=== PATIENT | female | born 1960 | race Caucasian/White ===

== ENCOUNTER 2019-07-08 11:32 | Observation (INO) ==
[2019-07-08] MEDS ORDERED: ALBUTEROL/IPRATROPIUM 3 ML NEB RESP TX PRN (15:45)
[2019-07-08] MEDS: predniSONE 20 MG TABLET PO SCH (16:41)
[2019-07-08] MEDS: LEVOTHYROXINE 100 MCG TABLET PO SCH (16:41)
[2019-07-08] MEDS ORDERED: ENOXAPARIN 40 MG/0.4 ML SYRINGE SUBCUT SCH (21:00)
[2019-07-08] MEDS ORDERED: MEROPENEM 1,000 MG in SODIUM CHLORIDE 0.9% 100 ML IV SCH (21:00)
[2019-07-08] MEDS: DOXYCYCLINE HYCLATE 100 MG CAPSULE PO SCH (21:30)
[2019-07-08] MEDS ORDERED: ONDANSETRON 4 MG/2 ML VIAL IV PRN (22:11)
[2019-07-08] MEDS: ACETAMINOPHEN 325 MG TABLET PO PRN (22:47)
[2019-07-09 06:57] LABS: Basophils % 0.4 % (0.0-0.8); Eosinophils % 0.2 % (0.00-10.9); Hematocrit 42.7 VOL% (35.7-47.0); Immature Granulocytes % 0.2 %; Immature Granulocytes Absolute 0.01 #; Lymphocytes # 1.4 10*3/uL (1.4-4.0); Mean Corpuscular HGB Conc 32.8 GM/DL (32-36); Mean Corpuscular Volume 93.2 FL (87-102); Mean Platelet Volume 10.8 FL (9.6-12.0); Monocytes % 7.2 % (1.7-12.7); Platelet Count 219 T/CUMM (130-400); Red Blood Count 4.58 MC/CUMM (3.8-5.5); White Blood Count 5.6 T/CUMM (4-12)
[2019-07-09 07:35] LABS: Osmolality,Calculated 283.1 MOS/KG (273-304)
[2019-07-09] MEDS: LEVOTHYROXINE 100 MCG TABLET PO SCH (07:39)
[2019-07-09] MEDS: predniSONE 20 MG TABLET PO SCH (08:32)
[2019-07-09] MEDS: DOXYCYCLINE HYCLATE 100 MG CAPSULE PO SCH (08:32)
[2019-07-09] MEDS ORDERED: MEROPENEM 500 MG in SODIUM CHLORIDE 0.9% 100 ML IV SCH (09:00)
[2019-07-09] MEDS ORDERED: PANTOPRAZOLE 40 MG TABLET PO SCH (09:00)
[2019-07-09] MEDS ORDERED: MONTELUKAST 10 MG TABLET PO SCH (09:00)
[2019-07-09] MEDS ORDERED: FLUTICASONE 50 MCG NASAL SPRAY 16 GM BOTTLE BOTH NARES SCH (09:00)
[2019-07-09] MEDS ORDERED: LEVOFLOXACIN 500 MG TABLET PO SCH (09:00)
[2019-07-09] MEDS: ACETAMINOPHEN 325 MG TABLET PO PRN (09:57)
[2019-07-09 11:36] VITALS: BP 130/68
[2019-07-10] MEDS ORDERED: LEVOTHYROXINE 100 MCG TABLET PO SCH (06:30)
[2019-07-12 15:06] LABS: Mycoplasma pneumoniae Ab Inter SEE COMMENTS; Mycoplasma pneumoniae Ab, IgG Positive (Negative); Mycoplasma pneumoniae Ab, IgM Negative (Negative)
== END 2019-07-09 13:16 | disposition home or self-care (01) ==
LOC: N.2E 11:50 → INTOOBSV 11:50 → N.2E 12:35
PROVIDERS: ADMIT Internal Medicine; ATTEND Hospitalist